=== PATIENT | female | born 1930 | race Caucasian/White ===

== ENCOUNTER → 2016-11-07 | Outpatient (CLI) | payer MEDICARE, OTHER ==
[~2016-11-07] MED LIST: ACET325T PO; ASPI1TAB69 PO; CARV12.52 PO; CVSTAB PO; DIET75TA PO; FOLI1TAB4 PO; FURO40TA PO; GLUCTAB PO; LEVEMIR SQ; NOVOLOGP2 SQ; PERC5TAB12 PO; SPIR25 PO; THYR15 PO; VALS1TAB64 PO; ZOCO20TA PO
--- NOTE | 2016-11-10 10:12 | RSPPFT ---
DATE OF PROCEDURE: 11/07/16 COMMENTS: VOLUMES DYNAMIC: FVC and FEV1 normal. STATIC: Not performed. FLOWS: FEV1% normal; FEF 25-75 normal. DIFFUSION: Mildly reduced. FLOW VOLUME LOOP: Restrictive configuration. IMPRESSION: This appears to be a mild restrictive defect but we do not have total lung volumes. Dynamic lung volumes are very normal. There is no airways obstruction. There is a mild reduction in diffusion however, and clinical correlation is required.
== END ==
LOC: PHRSP 09:19
PROVIDERS: ATTEND Internal Medicine
DX: R06.02 Shortness of breath (principal); R05 Cough
CPT/HCPCS: 94060; 94729